=== PATIENT | female | born 1965 | race African-American/Black ===

== ENCOUNTER 2018-01-15 23:49 | Emergency (ER) | payer BC, OTHER ==
[2018-01-16] MEDS ORDERED: Ondansetron HCl/PF 4 MG/2 ML Vial ONE (00:08)
[2018-01-16] MEDS ORDERED: methylPREDNISolone Sod Succ/PF 125 MG/2 ML VIAL ONE (00:08)
[2018-01-16] MEDS ORDERED: diphenhydrAMINE 50 MG/ML VIAL ONE (00:08)
[2018-01-16] MEDS ORDERED: Famotidine In NaCl 20 mg/50 ml Premix Bag ONE (00:08)
== END 2018-01-16 01:57 | disposition home or self-care (01) ==
LOC: BURERS 23:49
DX: L27.0 Generalized skin eruption due to drugs and medicaments taken internally (principal); T37.8X5A Adverse effect of other specified systemic anti-infectives and antiparasitics, initial encounter; N39.0 Urinary tract infection, site not specified; E78.5 Hyperlipidemia, unspecified; I10 Essential (primary) hypertension
CPT/HCPCS: 94760; 96365; 96375; J1200; J2405; J2930